=== PATIENT | female | born 1990 | race Two or more races ===

== ENCOUNTER 2019-05-02 23:57 | Emergency (ER) | payer MEDICAID ==
[~2019-05-02] VITALS: Ht 175.3 cm; Wt 72.6 kg
[2019-05-03 00:02] VITALS: Ht 175.3 cm; Wt 72.6 kg
[2019-05-03 02:31] LABS: CALCIUM 8.5 mg/dL (8.5-10.1); CARBON DIOXIDE 26.6 mmol/L (21-32); CHLORIDE SERUM 103 mmol/L (98-107); CREATININE SERUM 0.6 mg/dL (0.6-1.0); GFR1 > 60 mL/min; GLUCOSE SERUM 99 mg/dL (74-106); POTASSIUM SERUM 3.6 mmol/L (3.5-5.1); SODIUM SERUM 139 mmol/L (136-145)
[2019-05-03 02:36] LABS: ALKALINE PHOSPHATASE 121 U/L (46-116); ALT/SGPT 53 U/L (14-59); AST/SGOT 34 U/L (15-37); BILIRUBIN TOTAL 0.28 mg/dL (0.20-1.00); TOTAL PROTEIN, SERUM 6.9 g/dL (6.4-8.2)
[2019-05-03 02:37] LABS: BASOPHIL % 0.2 % (0-2); PLATELET COUNT 210 x10^3mcL (130-400); RED CELL DISTRIBUTION WIDTH 13.7 % (11.5-14.5)
[2019-05-03 02:38] LABS: ALBUMIN 2.6 g/dL (3.4-5.0)
[2019-05-03 04:19] VITALS: BP 125/70
== END 2019-05-03 04:20 | disposition home or self-care (01) ==
LOC: ED 23:57
PROVIDERS: Emergency Medicine
DX: R33.9 Retention of urine, unspecified (principal); R10.30 Lower abdominal pain, unspecified
CPT/HCPCS: J1885

== ENCOUNTER 2019-07-23 10:53 | Emergency (ER) | payer MEDICAID ==
[~2019-07-23] VITALS: Ht 167.6 cm; Wt 61.7 kg
[2019-07-23 10:58] VITALS: Ht 167.6 cm; Wt 61.7 kg
[2019-07-23 11:57] VITALS: BP 112/58
== END 2019-07-23 11:57 | disposition home or self-care (01) ==
LOC: ED 10:53
DX: H92.03 Otalgia, bilateral (principal); J98.01 Acute bronchospasm; R07.0 Pain in throat; R50.9 Fever, unspecified

== ENCOUNTER 2019-08-09 13:02 | Emergency (ER) | payer MEDICAID ==
[~2019-08-09] VITALS: Ht 160 cm; Wt 61.2 kg
[2019-08-09 13:17] VITALS: BP 113/69; Ht 160 cm; Wt 61.2 kg
== END 2019-08-09 13:55 | disposition home or self-care (01) ==
LOC: ED 13:02
DX: H65.93 Unspecified nonsuppurative otitis media, bilateral (principal)